=== PATIENT | male | born 1965 | race African-American/Black ===

== ENCOUNTER 2018-06-10 05:00 | Emergency (ER) | payer SELFPAY ==
[2018-06-10 05:30] LABS: #Basophils 0.1 thou/uL (0.0-0.2); #Lymphocytes 0.8 thou/uL (1.20-3.40); #Monocytes 0.8 thou/uL (0.11-0.59); #Neutrophils 8.2 thou/uL (1.40-6.50); %Basophils 0.9 % (0.0-1.0); %Eosinophils 0.2 % (0.0-10.0); %Lymphocytes 8.2 % (21.0-51.0); %Neutrophils 82.7 % (42.0-75.0); Hemoglobin 14.6 g/dL (14.0-18.0); Mean Corpuscular HGB CONC 31.7 g/dL (32.0-36.0); Mean Corpuscular Hemoglobin 32.3 pg (27.0-31.0); Mean Platelet Volume 7.1 fL (7.4-10.4); Platelet Count 171 thou/uL (130-400); RBC Distribution Width 13.5 % (11.5-14.5); Red Blood Cell (RBC) Count 4.52 mill/uL (4.70-6.10); White Blood Cell (WBC) Count 9.9 thou/uL (4.8-10.8)
[2018-06-10 05:43] LABS: ALT (SGPT) 19 U/L (8-55); AST (SGOT) 35 U/L (5-34); Albumin 4.1 g/dL (3.5-5.0); Alkaline Phosphatase 58 U/L (40-150); Anion Gap 26 mmol/L (10-20); BUN (Urea Nitrogen) 7 mg/dL (8.4-25.7); Bilirubin, Total 0.6 mg/dL (0.2-1.2); Calc. Creatinine Clearance 0 mL/min (70-130); Calcium 8.9 mg/dL (7.8-10.44); Carbon Dioxide 13 mmol/L (22-29); Chloride 97 mmol/L (98-107); Estimated GFR-MDRD 85; Globulin 4.4 g/dL (2.4-3.5); Glucose 129 mg/dL (70-105); Protein, Total 8.5 g/dL (6.0-8.3); Sodium 132 mmol/L (136-145)
[2018-06-10 05:50] LABS: CKMB 3.2 ng/mL (0-6.6); Troponin I 0.013 ng/mL (< 0.028)
[2018-06-10 06:14] LABS: Base Excess -2.4 mEq/L (-2.0 to +3.0); pH (venous) 7.49 (7.32-7.43)
[2018-06-10 06:15] LABS: Hemoglobin (Hb) 13.7 g/dL (13.1-17.2)
[2018-06-10] MEDS ORDERED: levETIRAcetam 500 MG TAB ONE (06:47)
--- NOTE | 2018-06-10 12:02 | CT ---
PRELIMINARY REPORT/[facility]/EMERGENTY AFTER-HOURS PROCEDURE CT Head Without Intravenous Contrast CLINICAL HISTORY: 53 years old, male; Condition or disease; Convulsions or seizures; Epilepsy; Severity not specified; Patient HX: The patient has had 3-4 seizures in the last 12 hrs, and previous to that his last one wa s 8 months ago. No definite etiology for the relapse. ; Additional info: Seizure quality described as grand-mal, multiple episodes. Sudden onset of symptoms, date and time of onset was 06/09/2018 20:00. TECHNIQUE: Axial computed tomography images of the head/brain without intravenous contrast. All CT scans at this facility use at least one of these dose optimization techniques: automated exposure control; Ma and/ or kV adjustment per patient size (includes targeted exams where dose is matched to clinical indication); or iterative reconstruction. COMPARISON: No relevant prior studies available. FINDINGS: Study is degraded by motion, streak and beam hardening artifacts. Given this limitation, there is no gross obvious intracranial hemorrhage, midline shift, mass, mass e ffect, hydrocephalus or extraaxial fluid collection in the visualized non-degraded portions of the br ain parenchyma. Diffuse cerebral volume loss. Chronic small vessel disease. Basal cisterns are patent. Valentin-white matter differentiation is preserved. No dense MCA sign. Paranasal sinuses are clear. Mastoid air cells are clear. No acute fracture. Soft tissues unremarkable. IMPRESSION: No gross obvious acute intracranial abnormality in the visualized non-degraded portions of the brain parenchyma. Thank you for allowing us to participate in the care of your patient. Dictated and Authenticated by: Ed Ramirez MD 06/10/2018 7:04 AM Central Time ([place] & [place]) FINAL REPORT EMERGENCY AFTER HOURS CT BRAIN: Date: 06/10/18 IMPRESSION: I agree with the preliminary interpretation given by Trina. No evidence for intracranial hemorrhage or mass effect. POS: [facility]
== END 2018-06-10 07:42 | disposition short-term general hospital (02) ==
LOC: NAV ERS 05:00
DX: G40.909 Epilepsy, unspecified, not intractable, without status epilepticus (principal); I10 Essential (primary) hypertension; F31.9 Bipolar disorder, unspecified; F17.210 Nicotine dependence, cigarettes, uncomplicated; Z79.899 Other long term (current) drug therapy
CPT/HCPCS: 70450; 80053; 82553; 82805; 84484; 85025; 93005; 94760; 96360; 96361